=== PATIENT | female | born 1990 | race Caucasian/White ===

== ENCOUNTER → 2024-07-28 | Day surgery (SDC) | payer OTHER ==
[~2024-07-28] MED LIST: DEXAMETHASONE SOD PHOS 10 MG/1 ML VIAL ONE; DEXAMETHASONE SOD PHOS INJ 4 MG/ML SDV ONE; FENTANYL CITRATE/PF 100MCG/2 ML INJ ONE; LIDOCAINE HCL 2% LOCAL INJ 5 ML SDV VIAL INJ ONE; MIDAZOLAM HCL 2 MG/2 ML VIAL ONE; MULTI-VITAMIN1 EACH PO; ONDANSETRON HCL INJ 2MG/ML 2ML 2 MG/ML VIAL ONE; PROPOFOL IV EMULSION 10 MG/ML 20 ML VIAL ONE; SEVOFLURANE INHAL SOLN 250 ML PEN BTL ONE; TIRZEPATIDE SQ; TYLENOL #3 PO
[2024-07-28] MEDS: LACTATED RINGER'S 1,000 ML ONE (08:06)
[2024-07-28 09:43] VITALS: TEMP 97.3
[2024-07-28 10:00] VITALS: BP 119/80; PULSE 71; RESP 17; O2SAT 100
== END | disposition home or self-care (01) ==
LOC: OR 07:41
PROVIDERS: ATTEND Otolaryngology Otolaryngology/Facial Plastic Surgery
DX: H91.22 Sudden idiopathic hearing loss, left ear (principal); H92.02 Otalgia, left ear; B02.9 Zoster without complications; Z88.1 Allergy status to other antibiotic agents
CPT/HCPCS: 81025; J1100; J2001; J2250; J2405

== ENCOUNTER → 2025-02-16 | Day surgery (SDC) | payer OTHER ==
[~2025-02-16] MED LIST changes: -DEXAMETHASONE SOD PHOS 10 MG/1 ML VIAL ONE; +FAMOTIDINE 20 MG/2 ML VIAL IV ONE; +MAGNESIUM; +ROCURONIUM BROMIDE 0 ML IV ONE; +SUCCINYLCHOLINE CHLORIDE 20 MG/ML 10ML VIAL ONE; +[UNRECOGNIZED DRUG - OTHER]
[2025-02-16] MEDS: LACTATED RINGER'S 1,000 ML ONE (06:57)
[2025-02-16 09:26] VITALS: TEMP 97.3
[2025-02-16] MEDS: MEPERIDINE HCL INJ 25 MG/ML VIAL ONE (09:35)
[2025-02-16] MEDS: ACETAMINOPHEN/CODEINE 300MG - 30MG TAB ONE (10:10)
[2025-02-16 11:00] VITALS: BP 135/88; PULSE 73; RESP 16; O2SAT 97
== END | disposition home or self-care (01) ==
LOC: OR 06:29
PROVIDERS: ATTEND Otolaryngology Otolaryngology/Facial Plastic Surgery
DX: J34.2 Deviated nasal septum (principal); J34.89 Other specified disorders of nose and nasal sinuses; H66.92 Otitis media, unspecified, left ear; H91.22 Sudden idiopathic hearing loss, left ear; Z88.1 Allergy status to other antibiotic agents; Z79.899 Other long term (current) drug therapy
CPT/HCPCS: 30520; 69436; 81025; 88300; 88304; 88311; J0330; J1100; J2003; J2175; J2250; J2405; J2704; J3010; J7121